=== PATIENT | male | born 1970 | race African-American/Black ===

== ENCOUNTER 2022-09-05 16:54 | Emergency (ER) | payer OTHER, SELFPAY ==
--- NOTE | ~2022-09-05 | XR_ITS ---
XR elbow LT min 3V DATE: 09/05/2022 17:55 INDICATION: Fall. Left ankle pain radiating to fingers. Limited range of motion. TECHNIQUE: 4 views COMPARISON: None FINDINGS: Minimal dorsal olecranon process spurring. There is minimal spurring of the coronoid proces s of the proximal ulna as well. No fracture or dislocation or joint effusion. No periosteal reaction or bone destruction. IMPRESSION: Minimal spurring of the coronoid process and olecranon process of the ulna Reviewed, dictated and finalized at location A. UTILITY OPERATOR IMPRESSION: Minimal spurring of the coronoid process and olecranon process of t he ulna
[2022-09-05 18:33] VITALS: BP 122/73; PULSE 87; RESP 14; TEMP 37.2; O2SAT 98
--- NOTE | 2022-09-05 20:45 | ED_ITS ---
HPI - Fall General Chief Complaint: Fall Stated Complaint: fall, left elbow injury and left knee injury Time Seen by Provider: 09/05/22 20:28 History of Present Illness HPI Narrative: Pt tripped and fell and landed on left elbow on concrete. Pt complains of left elbow pain. Pt says he bumped his left knee but it feels fine. Pt denies LOC or other injury. Injury happened today at work. Related Data Allergies Allergy/AdvReac Type Severity Reaction Status Date / Time Penicillins Allergy Mild Unknown Verified 09/05/22 20:50 Review of Systems Review of Systems: All systems reviewed & are unremarkable except as noted in HPI and below Exam Const: General: healthy appearing and no acute distress Nutritional Appearance: well nourished Orientation/consciousness: patient oriented x3 Limitations: no limitations Chest: Chest palpation & inspection: normal inspection of the chest Resp: Effort & Inspection: normal respiratory effort Auscultation: clear to auscultation bilaterally Cardio: Rate: regular rate Skin: General skin exam: normal color Rashes: no rashes Neuro: General: patient oriented x3, moves all extremities, no meningeal signs, no focal motor deficits and CN's II-XI intact bilaterally Cranial nerves: Yes Nystagmus not present Speech: normal speech Extrem: General: normal to inspection and no clubbing, cyanosis or edema Other: tender olecrenon but no deformity Psych: Mental Status: mental status grossly normal Affect: normal affect Attitude: cooperative Course Vital Signs Vital signs: Vital Signs Temperature 99.0 F 09/05/22 18:33 Pulse Rate 87 09/05/22 18:33 Respiratory Rate 14 09/05/22 18:33 Blood Pressure 122/73 09/05/22 18:33 Pulse Oximetry 98 09/05/22 18:33 Oxygen Delivery Room Air 09/05/22 18:33 Temperature 99.0 F 09/05/22 18:33 Pulse Rate 88 09/05/22 21:21 Respiratory Rate 18 09/05/22 21:21 Blood Pressure 126/77 09/05/22 21:21 Pulse Oximetry 98 09/05/22 21:21 Oxygen Delivery Room Air 09/05/22 18:33 Discharge Plan Discharge Clinical Impression: Contusion of left elbow Patient Disposition: Home, Self-Care Condition: Stable Instructions: Antibiotic Form, Contusion in Adults (ED) Prescriptions: New ibuprofen 800 mg tablet 800 mg PO TID Qty: 30 0RF ibuprofen 800 mg tablet 800 mg PO TID Qty: 30 0RF Follow-up/Referrals: PHYSICIAN,BUSINESS SERVICES INTERN [Primary Care Provider] - Stand Alone Forms: Work/School Release IP
[2022-09-05 21:21] VITALS: BP 126/77; PULSE 88; RESP 18; O2SAT 98
== END 2022-09-05 21:23 | disposition home or self-care (01) ==
PROVIDERS: Emergency Provider Emergency Medicine
DX: S50.02XA Contusion of left elbow, initial encounter (principal); W01.0XXA Fall on same level from slipping, tripping and stumbling without subsequent striking against object, initial encounter
CPT/HCPCS: 73080; 99283; A4565